=== PATIENT | male | born 1995 | race Caucasian/White ===

== ENCOUNTER 2019-06-27 18:50 | Observation (INO) | payer OTHER ==
[~2019-06-27] VITALS: Ht 182.9 cm; Wt 85.4 kg
[2019-06-27] MEDS ORDERED: ONDANSETRON 2MG/ML, 2ML IVPush ONE (19:00)
[2019-06-27] MEDS ORDERED: LORazepam 2 MG/ML, 1ML IVPush ONE ×2 (19:00→23:00)
[2019-06-27] MEDS ORDERED: ZIPRASIDONE 20 MG INJ IM ONE ×2 (19:00→19:26)
[2019-06-27] MEDS ORDERED: SODIUM CHLORIDE 0.9% 1,000ML IVBOLUS ONE (19:00)
[2019-06-27] MEDS ORDERED: ONDANSETRON 2MG/ML, 2ML ONE (19:26)
[2019-06-27] MEDS ORDERED: LORazepam 2 MG/ML, 1ML ONE (19:27)
[2019-06-27 19:30] LABS: BASOPHILS # (AUTO) 0.04 x10^3/uL (0-0.1); BASOPHILS % (AUTO) 1 % (0-1); EOSINOPHILS % (AUTO) 0 % (1-7); LYMPHOCYTES # (AUTO) 0.49 x10^3/uL (1-3.4); LYMPHOCYTES % (AUTO) 7 % (22-44); MD NO; MEAN CORPUSCULAR HEMOGLOBIN 29.8 pg (27.5-34.5); MEAN CORPUSCULAR HGB CONC 33.6 g/dL (33.2-36.2); MEAN CORPUSCULAR VOLUME 88.5 fL (81-97); MEAN PLATELET VOLUME 7.3 fL (7.4-10.4); MONOCYTES % (AUTO) 4 % (2-9); NEUTROPHILS # (AUTO) 6.51 x10^3/uL (1.8-6.8); NEUTROPHILS % (AUTO) 89 % (42-75); PLATELET COUNT 234 x10^3/uL (130-400); RED BLOOD COUNT 5.56 x10^6/uL (4.38-5.82); RED CELL DISTRIBUTION WIDTH 12.9 % (9.4-14.8)
[2019-06-27] MEDS ORDERED: PLEASE ENTER ALLERGIES MC SCH (19:30)
[2019-06-27 19:38] LABS: ALANINE AMINOTRANSFERASE 37 U/L (12-78); ALBUMIN 4.2 g/dL (3.4-5.0); ANION GAP 6 mmol/L (5-15); CHLORIDE 102 mmol/L (98-107); CREATININE 1.03 mg/dL (0.7-1.3)
[2019-06-27 19:39] LABS: SALICYLATE LEVEL < 1.7 mg/dL (2.8-20.0)
[2019-06-27 19:49] LABS: ALKALINE PHOSPHATASE 85 U/L (45-117); BILIRUBIN,TOTAL 0.2 mg/dL (0.2-1.0); TOTAL PROTEIN 7.8 g/dL (6.4-8.2)
--- NOTE | 2019-06-27 21:46 | NUR ---
PT RESTING COMFORTABLY. MOM AT BEDSIDE. MONITOR IN PLACE. BLANKET PROVIDED.
[2019-06-27] MEDS ORDERED: ONDANSETRON 2MG/ML, 2ML IVPush PRN (22:30)
[2019-06-27] MEDS ORDERED: ACETAMINOPHEN 325 MG TABLET PO PRN (22:30)
--- NOTE | 2019-06-27 22:35 | NUR ---
THIS RN WAS WALKING BY ROOM WHEN MOTHER CALLED THIS RN IN TO ROOM. PT DESATED TO 50% AND WAS BLUE IN THE FACE. HR IN 160'S. PT APPEARED TO BE SEIZING. PLACED ON O2, NOTIFIED AND PRIMARY RN JUNE. SUCTIONED SECRETIONS. AT BEDSIDE FOR EVAL. PT IS NOW 98%, HR 110. APPEARS AGITATED AND RESTLESS. MOTHER AT BEDSIDE. AWAITING ORDERS.
[2019-06-27] MEDS ORDERED: LEVETIRACETAM 1,000 MG in SODIUM CHLORIDE 0.9% 100 ML IV ONE (23:00)
[2019-06-27 23:15] VITALS: BP 110/55
[2019-06-28 03:00] VITALS: BP 109/52
[2019-06-28 05:18] LABS: BASOPHILS # (AUTO) 0.01 x10^3/uL (0-0.1); BASOPHILS % (AUTO) 0 % (0-1); EOSINOPHILS % (AUTO) 0 % (1-7); LYMPHOCYTES # (AUTO) 0.88 x10^3/uL (1-3.4); LYMPHOCYTES % (AUTO) 10 % (22-44); MD NO; MEAN CORPUSCULAR HEMOGLOBIN 29.7 pg (27.5-34.5); MEAN CORPUSCULAR HGB CONC 33.9 g/dL (33.2-36.2); MEAN CORPUSCULAR VOLUME 87.8 fL (81-97); MEAN PLATELET VOLUME 7.8 fL (7.4-10.4); MONOCYTES # (AUTO) 0.56 x10^3/uL (0.2-0.8); MONOCYTES % (AUTO) 6 % (2-9); NEUTROPHILS # (AUTO) 7.38 x10^3/uL (1.8-6.8); NEUTROPHILS % (AUTO) 84 % (42-75); PLATELET COUNT 243 x10^3/uL (130-400); RED CELL DISTRIBUTION WIDTH 12.7 % (9.4-14.8)
[2019-06-28 05:28] LABS: ANION GAP 9 mmol/L (5-15); CALCIUM 8.5 mg/dL (8.5-10.1); CHLORIDE 106 mmol/L (98-107)
[2019-06-28 05:30] LABS: CREATININE 0.96 mg/dL (0.7-1.3)
[2019-06-28 08:09] VITALS: BP 103/51
[2019-06-28] MEDS ORDERED: LORazepam 2 MG/ML, 1ML IVPush PRN (09:00)
[2019-06-28 09:16] LABS: MICROSCOPIC AUTO
[2019-06-28 09:20] LABS: AMPHETAMINE SCREEN, URINE Negative (Negative); BARBITURATE SCREEN, URINE Negative (Negative); BENZODIAZEPINE SCREEN, URINE Negative (Negative); CANNABINOID SCREEN, URINE Positive (Negative); COCAINE SCREEN, URINE Negative (Negative); CULTURE INDICATED? NO; METHADONE SCREEN, URINE Negative (Negative); OPIATE SCREEN, URINE Negative (Negative)
[2019-06-28] MEDS ORDERED: GADOTERATE 7.5 MMOL/15 ML SYR ONE (10:15)
[2019-06-28 10:17] VITALS: BP 102/61
[2019-06-28 13:34] VITALS: BP 115/69
[2019-06-28] MEDS: SODIUM CHLORIDE 0.9% 1,000 ML IV SCH ×2 (18:10→22:48)
[2019-06-28 19:56] VITALS: BP 114/65
[2019-06-29 01:20] VITALS: BP 114/56
[2019-06-29] MEDS: SODIUM CHLORIDE 0.9% 1,000 ML IV SCH ×2 (03:34→07:57)
[2019-06-29 05:54] LABS: ANION GAP 5 mmol/L (5-15); CALCIUM 8.1 mg/dL (8.5-10.1); CHLORIDE 112 mmol/L (98-107)
[2019-06-29 06:15] LABS: CREATINE KINASE, TOTAL 1258 U/L (39-308); CREATININE 0.82 mg/dL (0.7-1.3)
[2019-06-29 07:16] VITALS: BP 113/69
== END 2019-06-29 14:04 | disposition home or self-care (01) ==
LOC: ED 19:14 → EDIP 23:04 → 3N 23:18
PROVIDERS: ADMIT Family Medicine; ATTEND Family Medicine
DX: G93.41 Metabolic encephalopathy (principal); R56.9 Unspecified convulsions; M62.82 Rhabdomyolysis; G80.9 Cerebral palsy, unspecified; F12.90 Cannabis use, unspecified, uncomplicated; S00.81XA Abrasion of other part of head, initial encounter; W19.XXXA Unspecified fall, initial encounter; Y93.89 Activity, other specified; Y92.89 Other specified places as the place of occurrence of the external cause; Y99.8 Other external cause status
CPT/HCPCS: 36415; 70450; 70553; 71045; 80048; 80053; 80307; 81001; 82140; 82550; 84443; 85025; 96361; 96372; 96374; 96375; 96376; 99285; A9575; G0378; J1953; J2060; J2405; J3486; J7030